=== PATIENT | male | born 1990 | race Caucasian/White ===

== ENCOUNTER 2024-02-04 15:19 | Emergency (ER) | payer SELFPAY ==
[~2024-02-04] VITALS: Ht 170.2 cm; Wt 77.1 kg
[2024-02-04 15:25] VITALS: BP 144/83; PULSE 122; RESP 20; TEMP 97.3; O2SAT 98
[2024-02-04 17:08] LABS: BASOPHILS % (AUTO) 0.8 % (0.0-2.0); EOSINOPHILS % (AUTO) 0.6 % (0.0-4.0); HEMATOCRIT 44.3 % (36-52); HEMOGLOBIN 14.8 g/dL (12.0-18.0); LYMPHOCYTES # (AUTO) 1.4 K/uL (2.0-11.5); LYMPHOCYTES % (AUTO) 23.1 % (20.5-51.1); MEAN CORPUSCULAR HEMOGLOBIN 32 pg (27-31); MEAN CORPUSCULAR HGB CONC 33 g/dL (33-37); MEAN CORPUSCULAR VOLUME 94.2 fL (80-94); MONOCYTES # (AUTO) 0.6 K/uL (0.8-1.0); MONOCYTES % (AUTO) 10.9 % (1.7-9.3); NEUTROPHILS # (AUTO) 3.8 K/uL (1.8-7.7); NEUTROPHILS % (AUTO) 64.6 % (42.2-75.2); PLATELET COUNT (AUTO) 226 K/uL (140-450); RED CELL DISTRIBUTION WIDTH 12.5 % (11.6-13.7); WHITE BLOOD COUNT (AUTO) 5.9 K/uL (4.8-10.8)
[2024-02-04] MEDS: NACL 0.9% 1,500 ML IV ONE (17:24)
[2024-02-04 17:25] LABS: CARBON DIOXIDE 21.9 mmol/L (21-32); CREATININE 0.8 mg/dL (0.6-1.3); POTASSIUM 3.9 mmol/L (3.5-5.1)
[2024-02-04] MEDS: DIAZEPAM PFS 10 MG/2 ML SYR IVP ONE (17:25)
[2024-02-04 17:34] LABS: ALANINE AMINOTRANSFERASE 66 U/L (12-78); ALBUMIN 4.2 g/dL (3.4-5.0); ALCOHOL, BLOOD 43 mg/dL (<10); ALKALINE PHOSPHATASE 81 U/L (50-136); ASPARTATE AMINOTRANSFERASE 31 U/L (15-37); BILIRUBIN,DIRECT 0.3 mg/dL (0.0-0.3); TOTAL BILIRUBIN 1.3 mg/dL (0.0-1.0); TOTAL PROTEIN, SERUM 7.6 g/dL (6.4-8.2)
[2024-02-04] MEDS: diphenhydrAMINE 50 MG/ML VIAL IVP ONE (17:53)
[2024-02-04] MEDS: NACL 0.9% 1,000 ML IV ONE (18:10)
[2024-02-04] MEDS: MECLIZINE 25 MG TAB PO ONE (18:13)
[2024-02-04 18:17] VITALS: BP 143/83; PULSE 100; RESP 18; O2SAT 97
[2024-02-04] MEDS ORDERED: ACETAMINOPHEN 325 MG TAB ONE (19:57)
[2024-02-04] MEDS: ACETAMINOPHEN 325 MG TAB PO ONE (20:00)
[2024-02-04] MEDS: ONDANSETRON 4 MG/2 ML VIAL IVP ONE (20:01)
[2024-02-04] MEDS ORDERED: ONDA-188 SL (20:02)
[2024-02-04] MEDS ORDERED: ACET-10509 PO (20:02)
[2024-02-04] MEDS ORDERED: HYDR25CA1 PO (20:02)
== END 2024-02-04 20:21 | disposition home or self-care (01) ==
LOC: MED 15:19
DX: F10.10 Alcohol abuse, uncomplicated (principal); F19.10 Other psychoactive substance abuse, uncomplicated; F41.9 Anxiety disorder, unspecified; R07.9 Chest pain, unspecified; F15.90 Other stimulant use, unspecified, uncomplicated; R03.0 Elevated blood-pressure reading, without diagnosis of hypertension; Z79.899 Other long term (current) drug therapy; Y90.2 Blood alcohol level of 40-59 mg/100 ml
CPT/HCPCS: 36415; 71045; 80048; 80076; 83690; 84484; 85025; 93005; 96361; 96374; 96375; 99285; G0482; J1200; J3360; J7030; J8597; J2405